=== PATIENT | female | born 1955 | race Caucasian/White ===

== ENCOUNTER 2020-02-25 | Outpatient (REF) | payer MEDICARE, SELFPAY | END 2020-02-25 00:01 | disposition home or self-care (01) | LOC: HO.LNP | PROVIDERS: Visit Provider Urology | DX: Z13.89 Encounter for screening for other disorder (principal) ==

== ENCOUNTER → 2020-02-25 13:56 | Outpatient (BNVA) | payer MEDICARE, SELFPAY | PROVIDERS: PCP Internal Medicine; Visit Provider Urology | DX: N32.81 Overactive bladder (principal); N39.0 Urinary tract infection, site not specified | CPT/HCPCS: 51798; 81002; 99212 ==

== ENCOUNTER 2020-08-25 14:10 | Outpatient (REF) | payer MEDICARE, SELFPAY | END 2020-08-25 14:11 | disposition home or self-care (01) | LOC: HO.LNP 14:10 | PROVIDERS: PCP Internal Medicine; Visit Provider Urology | DX: N39.0 Urinary tract infection, site not specified (principal); N32.81 Overactive bladder | CPT/HCPCS: 81002; 87086; 87088; 87186; 99212 ==

== ENCOUNTER → 2021-01-01 10:15 | Outpatient (BNVA) | payer MEDICARE, SELFPAY | PROVIDERS: PCP Internal Medicine; Visit Provider Urology ==

== ENCOUNTER → 2021-01-07 08:54 | Outpatient (BNVA) | payer MEDICARE, SELFPAY | PROVIDERS: PCP Internal Medicine; Visit Provider Urology | DX: N39.0 Urinary tract infection, site not specified (principal) | CPT/HCPCS: Q3014 ==

== ENCOUNTER → 2021-01-22 15:17 | Outpatient (BNVA) | payer MEDICARE, SELFPAY | PROVIDERS: PCP Internal Medicine | DX: Z13.89 Encounter for screening for other disorder (principal) | CPT/HCPCS: Q3014 ==

== ENCOUNTER → 2021-02-22 11:15 | Outpatient (BNVA) | payer MEDICARE, SELFPAY | PROVIDERS: PCP Internal Medicine | DX: N32.81 Overactive bladder (principal); N39.0 Urinary tract infection, site not specified | CPT/HCPCS: 51798; 99212 ==

== ENCOUNTER 2022-04-07 10:29 | Outpatient (REF) | payer MEDICARE, SELFPAY ==
[2022-04-07 17:18] LABS: Urine Cytology See Pathology rpt
== END 2022-04-07 10:30 | disposition home or self-care (01) ==
LOC: HO.LAB 10:29
PROVIDERS: PCP Internal Medicine; Visit Provider Urology
DX: N32.81 Overactive bladder (principal); N39.0 Urinary tract infection, site not specified; R33.9 Retention of urine, unspecified
CPT/HCPCS: 51798; 87086; 88112; 99212

== ENCOUNTER 2022-04-28 15:22 | Outpatient (REF) | payer MEDICARE, SELFPAY ==
--- NOTE | ~2022-04-28 | US_ITS ---
EXAMINATION: US RETROPERITONEAL LIMITED (RENAL ONLY) CLINICAL INFORMATION: Urinary tract infection, site not specified. COMPARISON: Ultrasound retroperitoneal complete (renal) 08/13/2018. TECHNIQUE: Real-time imaging of the kidneys. FINDINGS: RIGHT KIDNEY: 11.5 x 5.06 x 6.06 cm (SAG x AP x TRV). The kidney is normal in size. Cortical thinning with mild increased echogenicity. No calculi or focal parenchymal lesions. No hydronephrosis. LEFT KIDNEY: 11.3 x 5.0 x 4.63 cm (SAG x AP x TRV). The kidney is normal in size. Cortical thinning with mild increased echogenicity. No calculi or focal parenchymal lesions. No hydronephrosis. US/US renal BI IMPRESSION: 1. Bilateral cortical thinning with increased echogenicity suggesting chronic underlying renal medical disease. 2. No hydronephrosis or nephrolithiasis.
== END 2022-04-28 15:23 | disposition home or self-care (01) ==
LOC: HO.HMGCX 15:22
PROVIDERS: PCP Internal Medicine; Visit Provider Urology
DX: N39.0 Urinary tract infection, site not specified (principal)
CPT/HCPCS: 76775

== ENCOUNTER → 2022-05-24 12:52 | Outpatient (BNVA) | payer MEDICARE, SELFPAY | PROVIDERS: PCP Internal Medicine; Visit Provider Urology | DX: R33.9 Retention of urine, unspecified (principal); N39.0 Urinary tract infection, site not specified; N32.81 Overactive bladder; N95.2 Postmenopausal atrophic vaginitis | CPT/HCPCS: 52000; 99212 ==

== ENCOUNTER 2022-07-20 12:56 | Outpatient (REF) | payer MEDICARE, SELFPAY | END 2022-07-20 12:57 | disposition home or self-care (01) | LOC: HO.LAB 12:56 | PROVIDERS: PCP Family Medicine; Visit Provider Urology | DX: N39.0 Urinary tract infection, site not specified (principal); R33.9 Retention of urine, unspecified | CPT/HCPCS: 51798; 87086; 99212 ==

== ENCOUNTER 2022-08-29 10:29 | Outpatient (REF) | payer MEDICARE, SELFPAY ==
--- NOTE | ~2022-08-29 | XR_ITS ---
EXAMINATION: XR CERVICAL SPINE CLINICAL INFORMATION: Cervical spondylosis. Pain radiating down the right arm. COMPARISON: None available. TECHNIQUE: 3 views of the cervical spine were obtained. FINDINGS: There is normal cervical lordosis. There is intervening bone graft at the C5-C6 disc level with ventral plate and screw screws for fusion. Rest of the vertebral heights and alignment is normal. There is loss of C6-C7 disc height with ventral spondylosis. The neural foramina are patent. No visible acute fracture or dislocation seen. XR/XR cervical spine 4V IMPRESSION: 1. C5-C6 disc fusion with ventral plate and screws. 2. Degenerative disc changes C6-C7 disc level with ventral spondylosis. No visible acute fracture or dislocation seen.
== END 2022-08-29 10:30 | disposition home or self-care (01) ==
LOC: HO.XRAY 10:29
PROVIDERS: PCP Internal Medicine; Visit Provider Psychiatry & Neurology Neurology
DX: M47.812 Spondylosis without myelopathy or radiculopathy, cervical region (principal)
CPT/HCPCS: 72050

== ENCOUNTER 2022-10-21 12:44 | Outpatient (AMB) | payer MEDICARE, SELFPAY ==
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
== END 2022-10-21 13:26 | disposition home or self-care (01) ==
PROVIDERS: Visit Provider Urology
DX: N39.41 Urge incontinence (principal); N31.9 Neuromuscular dysfunction of bladder, unspecified; N39.0 Urinary tract infection, site not specified
CPT/HCPCS: 99214

== ENCOUNTER 2022-10-21 12:44 | Outpatient (REF) | payer MEDICARE, SELFPAY | END 2022-10-21 12:45 | disposition home or self-care (01) | LOC: HO.LAB 12:44 | PROVIDERS: Visit Provider Urology | DX: N39.0 Urinary tract infection, site not specified (principal); N39.41 Urge incontinence; N31.9 Neuromuscular dysfunction of bladder, unspecified | CPT/HCPCS: 51798; 87086; 87088; 87186; 99212 ==

== ENCOUNTER 2022-11-02 08:58 | Outpatient (REF) | payer MEDICARE, SELFPAY | END 2022-11-02 08:59 | disposition home or self-care (01) | LOC: HO.10HDL 08:58 | PROVIDERS: Visit Provider Urology | DX: N39.0 Urinary tract infection, site not specified (principal) | CPT/HCPCS: 87086 ==

== ENCOUNTER → 2022-12-13 09:50 | Outpatient (BNVA) | payer MEDICARE, SELFPAY | PROVIDERS: PCP Internal Medicine; Visit Provider Urology ==

== ENCOUNTER 2022-12-30 15:17 | Outpatient (AMB) | payer MEDICARE, SELFPAY ==
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
== END 2022-12-30 16:28 | disposition home or self-care (01) ==
PROVIDERS: PCP Internal Medicine; Visit Provider Urology
DX: N39.41 Urge incontinence (principal); N31.9 Neuromuscular dysfunction of bladder, unspecified; N39.0 Urinary tract infection, site not specified
CPT/HCPCS: 99214

== ENCOUNTER → 2022-12-30 15:17 | Outpatient (BNVA) | payer MEDICARE, SELFPAY | PROVIDERS: PCP Internal Medicine; Visit Provider Urology | DX: N31.9 Neuromuscular dysfunction of bladder, unspecified (principal); N39.41 Urge incontinence; N39.0 Urinary tract infection, site not specified | CPT/HCPCS: 51798; 81003; 99212 ==

== ENCOUNTER 2023-01-19 12:38 | Outpatient (REF) | payer MEDICARE, SELFPAY | END 2023-01-19 12:39 | disposition home or self-care (01) | LOC: HO.LAB 12:38 | PROVIDERS: PCP Internal Medicine; Visit Provider Urology | DX: N39.0 Urinary tract infection, site not specified (principal); N39.41 Urge incontinence | CPT/HCPCS: 81003; 87086; 99212 ==

== ENCOUNTER 2023-01-19 12:38 | Outpatient (AMB) | payer MEDICARE, SELFPAY ==
--- NOTE | 2023-01-19 13:03 | MHC.OFFVIS ---
Intake Intake Visit Reasons: Urodynamics Intake Note: Patient presents today for a URODYNAMIC Procedure: (PROCEDURE WAS NOT PERFORMED Due to UTI) Meds: Estradiol Allergies to Antibiotic: Ciprofloxacin & Clindamycin Blood Thinner: None Corporate Auditor Required: No Accompanied by: Self / Same As Patient Allergies acetaminophen [Percocet] Allergy (Unknown, Verified 12/30/22 16:01) unk ciprofloxacin [Cipro] Allergy (Unknown, Verified 12/30/22 16:01) Unknown oxycodone [Percocet] Allergy (Unknown, Verified 12/30/22 16:01) Unknown Clindamycin HCl Allergy (Unknown, Uncoded 12/30/22 16:01) Unknown silk medical tape Allergy (Unknown, Uncoded 12/30/22 16:01) unknown HPI HPI Comments History of Present Illness Details Ailyn is a 67-year-old female who presents today to the office for a follow-up. 01/19/23? She is followed today for urodynamics procedure. She was last seen by me on?12/30/22 for urinary incontinence. Urodynamics was discussed to be scheduled during that time. She has comorbidities of recurrent UTI's, Obesity, Diuretic use Urodynamics was not performed, urinalysis was suggestive of urinary tract infections, as well the patient has symptoms of dysuria. Plan: Will start her on Ceftin 500 mg BID, once she completes the Ceftin will place her on daily antibiotics Keflex 500 mg daily. Prescribed Gemtesa 75 mg daily. Follow-up in 6 weeks for Cystoscopy. [facility] Medical History Atrophy of vagina Endometriosis Other cystitis without hematuria Recurrent UTI Surgical History History of surgery Family History Father Aneurysm Mother Blind Brother Cancer Sister Brain aneurysm Social History Alcohol intake: never Patient Tobacco Use Status: Never used Tobacco Review of Systems Const Reports no additional complaints Eyes Reports no additional complaints ENT Reports no additional complaints Card Denies dyspnea Resp Denies cough and Denies dyspnea GI Reports no additional complaints Reports no additional complaints Musc Reports no additional complaints Skin/Breast Denies rash and Denies unusual bruising Neuro Reports no additional complaints Psych Reports no additional complaints Endo Reports no additional complaints Eric/Lymph Reports no additional complaints Aller/Immun Reports no additional complaints Physical Exam Const General: cooperative, healthy appearing and no acute distress Nutritional Appearance: overweight Orientation/consciousness: patient oriented x3 HEENT Head: Yes normal to inspection, Yes normocephalic and Yes atraumatic Eyes Conjunctivae: conjunctivae normal Neck Neck: Yes normal visual inspection and Yes trachea midline Chest Chest palpation & inspection: normal inspection of the chest Resp Effort & Inspection: normal respiratory effort Cardio Rate: regular rate GI Inspection: Yes normal to inspection Palpation (GI): Soft to palpation General: No no CVA tenderness External Female Exam: normal external appearance Speculum Exam - Vagina: vagina atrophic Back/Spine/Pelvis Back: No no CVA tenderness Neuro General: patient oriented x3 Psych Appearance: grossly normal Results AMB Urinalysis, Automated UA Leukoctes 500 Sydnie/uL Last Edit by SHANNON Oliva on 01/19/23 13:28 3+ Edward Vaughan 01/19/23 13:28 UA Nitrite Negative Last Edit by SHANNON Oliva on 01/19/23 13:28 UA Urobilinogen 0.2 mg/dL Last Edit by SHANNON Oliva on 01/19/23 13:28 UA Protein 300 mg/dL Last Edit by SHANNON Oliva on 01/19/23 13:28 3+ Edward Vaughan 01/19/23 13:28 UA pH 6.0 Last Edit by SHANNON Oliva on 01/19/23 13:28 UA Blood 200 Christ/uL Last Edit by SHANNON Oliva on 01/19/23 13:28 3+ Edward Vaughan 01/19/23 13:28 UA Specific [place] 1.030 Last Edit by SHANNON Oliva on 01/19/23 13:28 UA Ketone Negative Last Edit by SHANNON Oliva on 01/19/23 13:28 UA Bilirubin 1 mg/dL Last Edit by SHANNON Oliva on 01/19/23 13:28 1+ Edward Vaughan 01/19/23 13:28 UA Glucose 0 mg/dL Last Edit by SHANNON Oliva on 01/19/23 13:28 Results Reviewed Results Reviewed: Laboratory Last Values Urine pH (Auto) 6.0 01/19/23 13:26 Specific [place] (Auto) 1.030 01/19/23 13:26 Urine Protein (Auto) 300 mg/dL 01/19/23 13:26 Glucose (UA)(Auto) 0 mg/dL 01/19/23 13:26 Urine Ketones (Auto) Negative 01/19/23 13:26 Urine Blood (Auto) 200 Christ/uL 01/19/23 13:26 Urine Nitrite (Auto) Negative 01/19/23 13:26 Urine Bilirubin (Auto) 1 mg/dL 01/19/23 13:26 Urine Urobilinogen (Auto) 0.2 mg/dL 01/19/23 13:26 Leukocyte Esterase (Auto) 500 Sydnie/uL 01/19/23 13:26 Assessment & Plan Assessment & Plan (1) Recurrent UTI (urinary tract infection): Code(s): N39.0 - Urinary tract infection, site not specified (2) Urge incontinence: Code(s): N39.41 - Urge incontinence (3) Pyuria: Code(s): R82.81 - Pyuria Plan Will start her on Ceftin 500 mg BID, once she completes the Ceftin will place her on daily antibiotics Keflex 500 mg daily. Prescribed Gemtesa 75 mg daily. Follow-up in 6 weeks for Cystoscopy. Orders: Orders Urine Culture Today N39.0 - Urinary tract infection, site not specified Medications: New cefuroxime axetil 500 mg PO BID 7 days 14 tabs 0RF vibegron (Gemtesa) 75 mg PO DAILY 90 tabs 3RF cephalexin after completing the Ceftin course for 7 days. Start daily Keflex 500 mg PO DAILY 90 caps 2RF recurrent utis Patient Instructions: The patient had an opportunity to ask questions regarding treatment plan. All questions were answered. Imaging, Laboratory studies and physical exam results were discussed and reviewed in detail. No major barriers to understanding were identified. The patient expressed understanding and agreement with the above treatment plan.? ? ? The patient is aware they should contact our office by phone for worsening of their current condition or the appearance of new symptoms. Compliance is encouraged with any medications and followup testing that is ordered.? ? ? It is a privilege to be allowed the opportunity to participate in the urologic care of your patient. If you have any questions or concerns regarding treatment for the above conditions please do not hesitate to contact me. The office telephone contact is [phone].? ? ? This note is constructed in part using voice recognition software. While every effort has been made to ensure accuracy data scientist errors may have been included.? ? ? Yours sincerely,? ? ? Jose Carlos Portillo MD? Coding Level of Care Code Est Pt Level 4 (83759) Diagnoses Recurrent UTI (urinary tract infection) N39.0 Urge incontinence N39.41 Pyuria R82.81
== END 2023-01-19 13:46 | disposition home or self-care (01) ==
PROVIDERS: PCP Internal Medicine; Visit Provider Urology
DX: N39.0 Urinary tract infection, site not specified (principal); N39.41 Urge incontinence; R82.81 Pyuria
CPT/HCPCS: 99214

== ENCOUNTER 2023-02-27 10:09 | Outpatient (REF) | payer MEDICARE, SELFPAY | END 2023-02-27 10:10 | disposition home or self-care (01) | LOC: HO.LAB 10:09 | PROVIDERS: PCP Internal Medicine; Visit Provider Urology | DX: N30.90 Cystitis, unspecified without hematuria (principal); N39.41 Urge incontinence; N36.42 Intrinsic sphincter deficiency (ISD) | CPT/HCPCS: 52000; 81003; 87086 ==

== ENCOUNTER 2023-02-27 10:09 | Outpatient (AMB) | payer MEDICARE, SELFPAY ==
--- NOTE | 2023-02-27 10:26 | MHC.OFFVIS ---
Intake Intake Visit Reasons: 6w/cysto/ need culture Intake Note: Patient presents today for a CYSTOSCOPY Procedure: Meds: None Allergies to Antibiotic: No Known Allergies Blood Thinner: None Urinalysis test clear for Cysto Disposable Uro-G Cystoscope Cannula: Lot: [id number] Exp: 08/24/2024 Reporting Process Consultant Required: No Care Assistant: Care Assistant Present Accompanied by: Self / Same As Patient Allergies acetaminophen [Percocet] Allergy (Unknown, Verified 02/27/23 10:27) unk ciprofloxacin [Cipro] Allergy (Unknown, Verified 02/27/23 10:27) Unknown oxycodone [Percocet] Allergy (Unknown, Verified 02/27/23 10:27) Unknown Clindamycin HCl Allergy (Unknown, Uncoded 02/27/23 10:27) Unknown silk medical tape Allergy (Unknown, Uncoded 02/27/23 10:27) unknown HPI HPI Comments History of Present Illness Details Ailyn is a 67-year-old female who presents today to the office for a follow-up. 02/27/2023-- She is followed today for cystoscopy procedure. She has comorbidities of recurrent UTI's, Obesity, Diuretic use She was last seen by me on 01/19/2023. Prescribed Gemtesa 75 mg daily during that time. Also placed on Abx suppressive therapy for persistent bacteuria and recurrent UTI's. Patient states that she has had significant improvement in the urinary urgency symptoms, but she still leaks urine with cough. 02/27/2023: Evaluation today--UA--Leukocytes: negative; blood: negative; protein: 1 +. Office Cystoscopy noted multiple focal white patches likely related to cystitis. Review of charts: Last visit: 01/19/23?Urodynamics was not performed, urinalysis was suggestive of urinary tract infection. Collected: Status: C OMP Req#: [id number] Received: Source: U ACC Sp Desc: Urine mohamud Subm Dr: Aline Portillo is MD Ord ered: Urine Cultu re Procedure Result Veri fied Sit e Urine Culture Final Report Result > 100,0 00 cfu/ml Mixed ba cterial arnel serafin acteristic of urog enital contaminati on. 02/27/2023: Plan:Continue Gemtesa, vaginal estradiol keflex suppressive therapy New--Discussed bulkamid bulking agent in the future intrinsic sphincter deficiency. ---------UDS - rescheduled. [facility] Medical History Endometriosis Other cystitis without hematuria Atrophy of vagina Recurrent UTI Surgical History History of surgery Family History Father Aneurysm Mother Blind Brother Cancer Sister Brain aneurysm Social History Alcohol intake: never Patient Tobacco Use Status: Never used Tobacco Review of Systems Const Reports no additional complaints Eyes Reports no additional complaints ENT Reports no additional complaints Card Denies dyspnea Resp Denies cough and Denies dyspnea GI Reports no additional complaints Reports no additional complaints Musc Reports no additional complaints Skin/Breast Denies rash and Denies unusual bruising Neuro Reports no additional complaints Psych Reports no additional complaints Endo Reports no additional complaints Eric/Lymph Reports no additional complaints Aller/Immun Reports no additional complaints Office Procedures Cystoscopy Consent Discussed risk and benefit or proposed procedure with the patient. Information consent for procedure given to the patient. Discussed technical aspects, risks, benefits and alternatives in full. Addressed all of the patient's questions and concerns regarding the procedure. The patient demonstrated knowledge and understanding. They wish to proceed with this procedure. Preparation The patient was prepped in the usual manner. A automotive mechanic was present and in the room. Genitalia was prepped with betadine solution in a sterile manner. Lidocaine Jelly 2% was placed into the urethra and 16Fr flexible Olympus cystoscope was inserted into the meatus after adequate lubrication. 38219-Opiqdkedhd DISPOSABLE SCOPE URO-G FLEXIBLE SCOPE Procedure code (CPT) selection complete Office Meds lidocaine HCl 2 % mucosal jelly in applicator Performing Provider: Jose Carlos Portillo MD Performing [facility] [place] [facility] Administered by: Leatha Nieto RN on 02/27/23 10:51 Dose Route Admin Location Dispensed Lot Number Expiration Date NDC [employer] 10 mL intra-urethral 20 mL nitrofurantoin monohydrate/macrocrystals 100 mg capsule Performing Provider: Jose Carlos Portillo MD Performing Location: [facility] [place] [facility] Administered by: Leatha Nieto RN on 02/27/23 10:51 Dose Route Admin Location Dispensed Lot Number Expiration Date NDC [employer] 100 mg PO 1 cap naproxen 500 mg tablet Performing Provider: Jose Carlos Portillo MD Performing Location: [facility] [place] [facility] Administered by: Leatha Nieto RN on 02/27/23 10:51 Dose Route Admin Location Dispensed Lot Number Expiration Date NDC [employer] 500 mg PO 1 tab Results AMB Urinalysis, Automated UA Leukoctes 0 Sydnie/uL Last Edit by Edward Vaughan [facility] on 02/27/23 10:38 UA Nitrite Negative Last Edit by Edward Vaughan [facility] on 02/27/23 10:38 UA Urobilinogen 0.2 mg/dL Last Edit by Edward Vaughan [facility] on 02/27/23 10:38 UA Protein 30 mg/dL Last Edit by Edward Vaughan [facility] on 02/27/23 10:38 1+ Edward Vaughan 02/27/23 10:38 UA pH 7.0 Last Edit by Edward Vaughan [facility] on 02/27/23 10:38 UA Blood 0 Christ/uL Last Edit by Edawrd Vaughan [facility] on 02/27/23 10:38 UA Specific [place] 1.020 Last Edit by Edward Vaughan [facility] on 02/27/23 10:38 UA Ketone Negative Last Edit by Edward Vaughan [facility] on 02/27/23 10:38 UA Bilirubin 0 mg/dL Last Edit by Edward Vaughan [facility] on 02/27/23 10:38 UA Glucose 0 mg/dL Last Edit by Edward Vaughan [facility] on 02/27/23 10:38 Results Reviewed Results Reviewed: Laboratory Last Values Urine pH (Auto) 7.0 02/27/23 10:26 Specific [place] (Auto) 1.020 02/27/23 10:26 Urine Protein (Auto) 30 mg/dL 02/27/23 10:26 Glucose (UA)(Auto) 0 mg/dL 02/27/23 10:26 Urine Ketones (Auto) Negative 02/27/23 10:26 Urine Blood (Auto) 0 Christ/uL 02/27/23 10:26 Urine Nitrite (Auto) Negative 02/27/23 10:26 Urine Bilirubin (Auto) 0 mg/dL 02/27/23 10:26 Urine Urobilinogen (Auto) 0.2 mg/dL 02/27/23 10:26 Leukocyte Esterase (Auto) 0 Sydnie/uL 02/27/23 10:26 Assessment & Plan Assessment & Plan (1) Urge incontinence: Code(s): N39.41 - Urge incontinence (2) Intrinsic sphincter deficiency (ISD): Code(s): N36.42 - Intrinsic sphincter deficiency (ISD) (3) Cystitis: Code(s): N30.90 - Cystitis, unspecified without hematuria Plan Continue Gemtesa, vaginal estradiol keflex suppressive therapy Discussed bulkamid bulking agent in the future for the symptoms of intrinsic sphincter deficiency. Orders: Orders Urine Culture Today N39.0 - Urinary tract infection, site not specified AMB Urinalysis Automated Today Z13.9 - Encounter for screening, unspecified AMB Cystoscopy Today N32.81 - Overactive bladder Patient Instructions: The patient had an opportunity to ask questions regarding treatment plan. All questions were answered. Imaging, Laboratory studies and physical exam results were discussed and reviewed in detail. No major barriers to understanding were identified. The patient expressed understanding and agreement with the above treatment plan. The patient is aware they should contact our office by phone for worsening of their current condition or the appearance of new symptoms. Compliance is encouraged with any medications and followup testing that is ordered. It is a privilege to be allowed the opportunity to participate in the urologic care of your patient. If you have any questions or concerns regarding treatment for the above conditions please do not hesitate to contact me. The office telephone contact is [phone]. This note is constructed in part using voice recognition software. While every effort has been made to ensure accuracy unarmed security guard errors may have been included. Yours sincerely, Jose Carlos Portillo MD Coding Level of Care Code Est Pt Level 3 (12852) Diagnoses Urge incontinence N39.41 Intrinsic sphincter deficiency (ISD) N36.42 Cystitis N30.90 CPT Codes Cystoscopy - CPT: 90215-Sxzipmdfbv ([id number]) Comment Modifier 24
== END 2023-02-27 11:36 | disposition home or self-care (01) ==
PROVIDERS: PCP Internal Medicine; Visit Provider Urology
DX: N32.81 Overactive bladder (principal); N30.90 Cystitis, unspecified without hematuria; N39.41 Urge incontinence; N36.42 Intrinsic sphincter deficiency (ISD); Z13.9 Encounter for screening, unspecified
CPT/HCPCS: 52000

== ENCOUNTER 2023-03-13 14:28 | Outpatient (AMB) | payer MEDICARE, SELFPAY ==
--- NOTE | 2023-03-13 14:53 | MHC.OFFVIS ---
Intake Intake Visit Reasons: Urodynamics Allergies acetaminophen [Percocet] Allergy (Unknown, Verified 02/27/23 10:27) unk ciprofloxacin [Cipro] Allergy (Unknown, Verified 02/27/23 10:27) Unknown oxycodone [Percocet] Allergy (Unknown, Verified 02/27/23 10:27) Unknown Clindamycin HCl Allergy (Unknown, Uncoded 02/27/23 10:27) Unknown silk medical tape Allergy (Unknown, Uncoded 02/27/23 10:27) unknown HPI HPI Comments History of Present Illness Details Ailyn is a 67-year-old female who presents today to the office for a follow-up. 03/13/2023? She is followed today for urodynamics procedure. She has comorbidities of recurrent UTI's, Obesity, Diuretic use She had been trialled on multiple meds in the past She was last seen by me on 02/27/2023 for a cystoscopy procedure. Urodynamics performed: CMG parameters detailed below. Interpretation: During the filling phase there was normal sensation, sensory urgency was noted, strong urge was noted at 169 mL with a small detrusor contraction and associated leakage; Leakage was observed during cough or valsalva stress. Findings consistent with ISD, and detrusor overactivity. EMG- Appropriate changes in the waveforms were noted through out the study. There was a decrease in the EMG activity during the voiding c/w normal function of the pelvic floor. Review of charts: Last visit: 02/27/2023--Office Cystoscopy noted multiple focal white patches likely related to cystitis. She is followed today for cystoscopy procedure. Office Cystoscopy noted multiple focal white patches likely related to cystitis. OV--01/19/2023. Prescribed Gemtesa 75 mg daily during that time. Also placed on Abx suppressive therapy for persistent bacteuria and recurrent UTI's. Patient states that she has had significant improvement in the urinary urgency symptoms, but she still leaks urine with cough. 03/13/2023: plan: Continue Gemtesa as prescribed. vaginal estradiol keflex suppressive therapy I discussed periurethral bulking agent to consider in the future. Follow-up in 04/2023. [facility] Medical History Endometriosis Other cystitis without hematuria Atrophy of vagina Recurrent UTI Surgical History History of surgery Family History Father Aneurysm Mother Blind Brother Cancer Sister Brain aneurysm Social History Alcohol intake: never Patient Tobacco Use Status: Never used Tobacco Review of Systems Const Reports no additional complaints Eyes Reports no additional complaints ENT Reports no additional complaints Card Denies dyspnea Resp Denies cough and Denies dyspnea GI Reports no additional complaints Reports no additional complaints Musc Reports no additional complaints Skin/Breast Denies rash and Denies unusual bruising Neuro Reports no additional complaints Psych Reports no additional complaints Endo Reports no additional complaints Eric/Lymph Reports no additional complaints Aller/Immun Reports no additional complaints Results AMB Urinalysis, Automated UA Leukoctes 15 Sydnie/uL Last Edit by Wojciech Uribe LPN on 03/13/23 15:52 UA Nitrite Negative Last Edit by Wojciech Uribe LPN on 03/13/23 15:52 UA Urobilinogen 0.2 mg/dL Last Edit by Wojciech Uribe LPN on 03/13/23 15:52 UA Protein 15 mg/dL Last Edit by Wojciech Uribe LPN on 03/13/23 15:52 UA pH 8.0 Last Edit by Wojciech Uribe LPN on 03/13/23 15:52 UA Blood 25 Christ/uL Last Edit by Wojciech Uribe LPN on 03/13/23 15:52 UA Specific [place] 1.010 Last Edit by Wojciech Uribe LPN on 03/13/23 15:52 UA Ketone Negative Last Edit by Wojciech Uribe LPN on 03/13/23 15:52 UA Bilirubin 0 mg/dL Last Edit by Wojciech Uribe LPN on 03/13/23 15:52 UA Glucose 0 mg/dL Last Edit by Wojciech Uribe LPN on 03/13/23 15:52 Results Reviewed Results Reviewed: Laboratory Last Values Urine pH (Auto) 8.0 03/13/23 15:50 Specific [place] (Auto) 1.010 03/13/23 15:50 Urine Protein (Auto) 15 mg/dL 03/13/23 15:50 Glucose (UA)(Auto) 0 mg/dL 03/13/23 15:50 Urine Ketones (Auto) Negative 03/13/23 15:50 Urine Blood (Auto) 25 Christ/uL 03/13/23 15:50 Urine Nitrite (Auto) Negative 03/13/23 15:50 Urine Bilirubin (Auto) 0 mg/dL 03/13/23 15:50 Urine Urobilinogen (Auto) 0.2 mg/dL 03/13/23 15:50 Leukocyte Esterase (Auto) 15 Sydnie/uL 03/13/23 15:50 Assessment & Plan Assessment & Plan (1) Intrinsic sphincter deficiency (ISD): Code(s): N36.42 - Intrinsic sphincter deficiency (ISD) (2) Detrusor overactivity: Code(s): N32.81 - Overactive bladder Plan Continue Gemtesa as prescribed. I discussed periurethral bulking agent to consider in the future. Follow-up in 04/2023. Orders: Orders Urine Culture 03/13/23 N39.0 - Urinary tract infection, site not specified AMB Urinalysis Automated 03/13/23 N39.0 - Urinary tract infection, site not specified Patient Instructions: The patient had an opportunity to ask questions regarding treatment plan. All questions were answered. Imaging, Laboratory studies and physical exam results were discussed and reviewed in detail. No major barriers to understanding were identified. The patient expressed understanding and agreement with the above treatment plan. The patient is aware they should contact our office by phone for worsening of their current condition or the appearance of new symptoms. Compliance is encouraged with any medications and followup testing that is ordered. It is a privilege to be allowed the opportunity to participate in the urologic care of your patient. If you have any questions or concerns regarding treatment for the above conditions please do not hesitate to contact me. The office telephone contact is [phone]. This note is constructed in part using voice recognition software. While every effort has been made to ensure accuracy rehabilitation program manager errors may have been included. Yours sincerely, Jose Carlos Portillo MD Coding Level of Care Code Procedure Only Diagnoses Intrinsic sphincter deficiency (ISD) N36.42 Detrusor overactivity N32.81 CPT Codes Urodynamic Studies - CPT: 78632-Xbsmaucaaxpdpf w/ SCHOOL OFFICE ASSISTANT ([id number]) Urodynamic Studies - CPT: 93450-Ragkxxz-Icwtsbpvlsst First ([id number]) Urodynamic Studies - CPT: 12018-Zruy/Urinary Muscle Study ([id number]) Urodynamic Studies - CPT: 62532-Zvbkb-Rzisnbggv Pressure Test ([id number]) Urodynamic Studies Consent Discussed risk and benefit or proposed procedure with the patient. Information consent for procedure given to the patient. Discussed technical aspects, risks, benefits and alternatives in full. Addressed all of the patient's questions and concerns regarding the procedure. The patient demonstrated knowledge and understanding. They wish to proceed with this procedure. Preparation The patient was prepped in the usual manner. A forestry engineer was present and in the room. Genitalia was prepped with betadine solution in a sterile manner. Procedure Complex Uroflow Complex uroflow performed by: Jose Carlos Portillo Maximum urinary flow rate (mL/second): 29 Voiding time (seconds): 5.7 Voided volume (mL): 58 Residual urine (mL): 0 Cystometrogram Void Pressure Vaginal/rectal catheter type: rectal First sensation at (mL): 80 First detrussor pressure (cm H2O): -5.1 Strong desire to void occured at (mL): 169 Strong desire detrussor pressure (cm H2O): -2.1 Maximum fill (mL): 313 Maximum fill detrussor pressure (cm H2O): -1.5 Voided with max detrussor pressure of (cm H2O): -1.5 (associated with artifact) Maximum flow rate (mL/second): 30 80102-Lgqpmkoplrlbkx w/ SCHOOL OFFICE ASSISTANT 01355-Itnfzkz-Fbecdxkvtxdl First 84947-Qini/Urinary Muscle Study 83251-Lfmqm-Islgbirji Pressure Test Procedure code (CPT) selection complete
== END 2023-03-13 15:32 | disposition home or self-care (01) ==
PROVIDERS: PCP Internal Medicine; Visit Provider Urology
DX: N32.81 Overactive bladder (principal); N36.42 Intrinsic sphincter deficiency (ISD)
CPT/HCPCS: 51728; 51741; 51784; 51797

== ENCOUNTER 2023-03-13 14:28 | Outpatient (REF) | payer MEDICARE, SELFPAY | END 2023-03-13 14:29 | disposition home or self-care (01) | LOC: HO.LAB 14:28 | PROVIDERS: PCP Internal Medicine; Visit Provider Urology | DX: N39.0 Urinary tract infection, site not specified (principal); E66.9 Obesity, unspecified; Z79.899 Other long term (current) drug therapy | CPT/HCPCS: 51728; 51741; 51784; 51797; 81003; 87086 ==

== ENCOUNTER 2023-04-11 14:17 | Outpatient (REF) | payer MEDICARE, SELFPAY ==
[2023-04-11 16:38] LABS: Appearance Urine Turbid; Color Urine Yellow; Glucose Urine UA Negative (Negative); Leukocyte Esterase Urine Moderate (2+) (Negative); Nitrite Urine Negative (Negative); PH >= 9.0 (5.0-9.0); UMIC TRIGGER UA YES; Urine Blood Moderate (2+) (Negative); Urine Ketones Negative (Negative); Urine Protein 30 (1+) mg/dL (Neg-Trace)
[2023-04-11 16:41] LABS: Bacteria Urine 1+ (None Seen); RBC Urine >20 /HPF (0-2)
== END 2023-04-11 14:18 | disposition home or self-care (01) ==
LOC: HO.HMGCLDS 14:17
PROVIDERS: PCP Internal Medicine; Visit Provider Urology
DX: N39.0 Urinary tract infection, site not specified (principal)
CPT/HCPCS: 81001; 87086

== ENCOUNTER 2023-05-08 12:56 | Outpatient (AMB) | payer MEDICARE, SELFPAY ==
--- NOTE | 2023-05-08 13:04 | A.OFFVIS_ITS ---
Intake Intake Visit Reasons: 2m follow up Intake Note: Patient presents today for a follow-up on OAB/incontinence: Meds- Gemtesa & Estradiol Allergies to Antibiotic- Cipro & Clindamycin Blood Thinner- None PVR- 0 ml Priming Mixture Carrier Required: No Accompanied by: Self / Same As Patient Allergies acetaminophen [Percocet] Allergy (Unknown, Verified 05/08/23 13:14) unk ciprofloxacin [Cipro] Allergy (Unknown, Verified 05/08/23 13:14) Unknown oxycodone [Percocet] Allergy (Unknown, Verified 05/08/23 13:14) Unknown Clindamycin HCl Allergy (Unknown, Uncoded 05/08/23 13:14) Unknown silk medical tape Allergy (Unknown, Uncoded 05/08/23 13:14) unknown Medication List - Last Reconciled 05/08/23 by Jose Carlos Portillo MD atorvastatin 20 mg PO DAILY cefuroxime axetil 500 mg PO BID 7 days cephalexin 500 mg PO DAILY cyclosporine 0.05% (Restasis MultiDose) 1 drp ophthalmic (eye) Q12H dicyclomine 20 mg PO QID doxycycline hyclate 100 mg PO BID 7 days estradiol (Vagifem) 10 mcg vaginal 2XW hydrochlorothiazide 50 mg PO DAILY montelukast 10 mg PO DAILY nitrofurantoin monohyd/m-cryst 100 mg (Macrobid) 100 mg PO BID 7 days nystatin topical TID sertraline 100 mg PO DAILY tramadol 50 mg PO BID PRN vibegron (Gemtesa) 75 mg PO DAILY zolpidem 10 mg PO BEDTIME PRN HPI HPI Comments History of Present Illness Details Ailyn is a 67-year-old female who presents today to the office for a follow-up. 05/08/23--She has comorbidities of recurr ent UTI's, Obesity, Diuretic use. She had been trialled on multiple meds in the past for urinary urgency currently on gemtesa 75 mg daily. She is prescribed keflex daily for suppressive abx therapy and is on vagifem biweekly. She is up 3 times at night to urinate, She leaks with couging. Discussed plan for bulkamid therapy when available. Review of chart: 03/13/2023?Seen for urodynamics procedur e: findings c/w detrusor overactivity and ISD 02/27/2023--Office Cystoscopy noted mult iple focal white patches likely related to cystitis. 05/08/23: Plan: Cont Gemtesa Cont Vagifem Cont keflex supressive therapy daily Plan on periurethral bulking agent in the future FU in 6 months [facility] Medical History Endometriosis Other cystitis without hematuria Atrophy of vagina Recurrent UTI Surgical History History of surgery Family History Father Aneurysm Mother Blind Brother Cancer Sister Brain aneurysm Social History Alcohol intake: never Patient Tobacco Use Status: Never used Tobacco Review of Systems Const Reports no additional complaints Eyes Reports no additional complaints ENT Reports no additional complaints Card Denies dyspnea Resp Denies cough and Denies dyspnea GI Reports no additional complaints Reports no additional complaints Musc Reports no additional complaints Skin/Breast Denies rash and Denies unusual bruising Neuro Reports no additional complaints Psych Reports no additional complaints Endo Reports no additional complaints Eric/Lymph Reports no additional complaints Aller/Immun Reports no additional complaints Results AMB Urinalysis, Automated UA Leukoctes 0 Sydnie/uL Last Edit by SHANNON Oliva on 05/08/23 13:16 UA Nitrite Negative Last Edit by SHANNON Oliva on 05/08/23 13:16 UA Urobilinogen 0.2 mg/dL Last Edit by SHANNON Oliva on 05/08/23 13:1 6 UA Protein 0 mg/dL Last Edit by SHANNON Oliva on 05/08/23 13:16 UA pH 7.0 Last Edit by SHANNON Oliva on 05/08/23 13:16 UA Blood 0 Christ/uL Last Edit by SHANNON Oliva on 05/08/23 13:16 UA Specific [place] 1.020 Last Edit by Edward Vaughan A on 05/08/23 13: 16 UA Ketone Negative Last Edit by Edward Vaughan Caron on 05/08/23 13:16 UA Bilirubin 0 mg/dL Last Edit by Edward Vaughan A on 05/08/23 13:16 UA Glucose 0 mg/dL Last Edit by Edward Vaughan A on 05/08/23 13:16 Results Reviewed Results Reviewed: Laboratory Last Values Urine pH (Auto) 7.0 05/08/23 13:14 Specific [place] (Auto) 1.020 05/08/23 13:14 Urine Protein (Auto) 0 mg/dL 05/08/23 13:14 Glucose (UA)(Auto) 0 mg/dL 05/08/23 13:14 Urine Ketones (Auto) Negative 05/08/23 13:14 Urine Blood (Auto) 0 Christ/uL 05/08/23 13:14 Urine Nitrite (Auto) Negative 05/08/23 13:14 Urine Bilirubin (Auto) 0 mg/dL 05/08/23 13:14 Urine Urobilinogen (Auto) 0.2 mg/dL 05/08/23 13:14 Leukocyte Esterase (Auto) 0 Sydnie/uL 05/08/23 13:14 Assessment & Plan Assessment & Plan (1) Intrinsic sphincter deficiency (ISD): Code(s): N36.42 - Intrinsic sphincter deficiency (ISD) (2) Detrusor overactivity: Code(s): N32.81 - Overactive bladder (3) Cystitis: Code(s): N30.90 - Cystitis, unspecified without hematuria Plan Cont Gemtesa Cont Vagifem Cont keflex supressive therapy daily Plan on periurethral bulking agent in the future FU in 6 months Orders: Orders AMB Urinalysis Automated Today Z13.9 - Encounter for screening, unspecified Medications: Refilled cephalexin after completing the Ceftin course for 7 days. Start daily Keflex 500 mg PO DAILY 90 caps 2RF recurrent utis vibegron (Gemtesa) 75 mg PO DAILY 90 tabs 3RF Patient Instructions: The patient had an opportunity to ask questions regarding treatment plan. All questions were answered. Laboratory studies and physical exam results were discussed and reviewed in detail. No major barriers to understanding were i dentified. The patient expressed understanding and agreement with the above treatment plan. The patient is aware they should contact our office by phone for worsening of their current condition or the appearance of new symptoms. Compliance is encouraged with any medications and followup testing that is ordered. It is a privilege to be allowed the opportunity to participate in the urologic care of your patient. If you have any questions or concerns regarding treatment for the above conditions please do not hesitate to contact me. The office telephone contact is [phone]. This note is constructed in part using voice recognition software. While every effort has been made to ensure accuracy product safety lead errors may have been included. Yours sincerely, Jose Carlos Portillo MD Coding Level of Care Code Est Pt Level 4 (98698) Diagnoses Intrinsic sphincter deficiency (ISD) N36.42 Detrusor overactivity N32.81 Cystitis N30.90
== END 2023-05-08 13:57 | disposition home or self-care (01) ==
PROVIDERS: PCP Internal Medicine; Visit Provider Urology
DX: N36.42 Intrinsic sphincter deficiency (ISD) (principal); N32.81 Overactive bladder; N30.90 Cystitis, unspecified without hematuria; Z13.9 Encounter for screening, unspecified
CPT/HCPCS: 99214

== ENCOUNTER → 2023-05-08 12:56 | Outpatient (BNVA) | payer MEDICARE, SELFPAY | PROVIDERS: PCP Internal Medicine; Visit Provider Urology | DX: N36.42 Intrinsic sphincter deficiency (ISD) (principal); N32.81 Overactive bladder; N30.90 Cystitis, unspecified without hematuria | CPT/HCPCS: 81003; 99212 ==